=== PATIENT | male | born 1985 | race Caucasian/White ===

== ENCOUNTER 2018-01-14 13:37 | Emergency (ER) | payer MEDICAID ==
[2018-01-14 14:17] LABS: ADD UMIC NO; UR ASCORBIC ACID 20 mg/dL (NEGATIVE); UR BILIRUBIN (Dip) NEGATIVE (NEGATIVE); UR BLOOD (Dip) NEGATIVE (NEGATIVE); UR CLARITY SLIGHTLY CLOUDY (CLEAR); UR COLOR YELLOW (YELLOW); UR GLUCOSE (Dip) NEGATIVE (NEGATIVE); UR KETONES (Dip) NEGATIVE (NEGATIVE); UR LEUKOCYTE ESTERASE (Dip) NEGATIVE Leu/ul (NEGATIVE); UR NITRITE (Dip) NEGATIVE (NEGATIVE); UR RBC 1 /HPF (0-5); UR SPECIFIC GRAVITY (Dip) 1.019 (1.003-1.030); UR TOTAL PROTEIN (Dip) NEGATIVE (NEGATIVE); UR UROBILINOGEN (Dip) NEGATIVE (NEGATIVE); UR WBC 2 /HPF (0-5)
[2018-01-14] MEDS: KETOROLAC 15 MG INJ IV (15:47)
[2018-01-14] MEDS: KETOROLAC 15 MG INJ IM (15:49)
== END 2018-01-14 16:10 | disposition home or self-care (01) ==
LOC: E/R 13:37
DX: N50.811 Right testicular pain (principal)
CPT/HCPCS: 76870; 81001; 81003; 87086; 96372; 99285-25

== ENCOUNTER 2018-03-21 13:27 | Emergency (ER) | payer MEDICAID ==
[2018-03-21] MEDS: FLUORESCEIN STRIP LEFT EYE (16:18)
[2018-03-21] MEDS: CEPHALEXIN 500 MG CAP PO (16:35)
== END 2018-03-21 17:08 | disposition home or self-care (01) ==
LOC: FTE 13:27
DX: H57.12 Ocular pain, left eye (principal); R40.2412 Glasgow coma scale score 13-15, at arrival to emergency department
CPT/HCPCS: 99283; Z7502

== ENCOUNTER 2018-03-23 08:56 | Emergency (ER) | payer MEDICAID | END 2018-03-23 09:48 | disposition home or self-care (01) | LOC: FTE 08:56 | DX: H00.014 Hordeolum externum left upper eyelid (principal) | CPT/HCPCS: 99283; Z7502 ==

== ENCOUNTER 2018-06-23 15:59 | Emergency (ER) | payer MEDICAID ==
[2018-06-23 17:31] LABS: ADD UMIC NO; UR ASCORBIC ACID NEGATIVE (NEGATIVE); UR BILIRUBIN (Dip) NEGATIVE (NEGATIVE); UR BLOOD (Dip) NEGATIVE (NEGATIVE); UR CLARITY CLEAR (CLEAR); UR COLOR STRAW (YELLOW); UR GLUCOSE (Dip) NEGATIVE (NEGATIVE); UR KETONES (Dip) NEGATIVE (NEGATIVE); UR LEUKOCYTE ESTERASE (Dip) NEGATIVE Leu/ul (NEGATIVE); UR NITRITE (Dip) NEGATIVE (NEGATIVE); UR SPECIFIC GRAVITY (Dip) 1.005 (1.003-1.030); UR TOTAL PROTEIN (Dip) NEGATIVE (NEGATIVE); UR UROBILINOGEN (Dip) NEGATIVE (NEGATIVE)
== END 2018-06-23 17:49 | disposition home or self-care (01) ==
LOC: FTE 15:59
DX: R30.0 Dysuria (principal)
CPT/HCPCS: 81003; 87086; 99283